=== PATIENT | male | born 1945 | race Caucasian/White ===

== ENCOUNTER 2024-02-11 19:40 | Inpatient (IN) | payer OTHER ==
[~2024-02-11] VITALS: Ht 182.9 cm; Wt 104.5 kg
[2024-02-11] MEDS ORDERED: SODIUM CHLORIDE 0.9% 1,000 ML IV ONE (19:50)
[2024-02-11 20:00] VITALS: BP 190/94
[2024-02-11 20:33] LABS: ACT PARTIAL THROMBO TIME 27.6 SECONDS (20.0-32.1)
[2024-02-11 20:34] LABS: HEMATOCRIT 46.2 % (42.0-52.0); MEAN CELL VOLUME 89.7 fl (80.0-94.0); MEAN CORPUSCULAR HGB 29.1 pg (27.0-31.0); MEAN CORPUSCULAR HGB CONC 32.5 g/dl (33.0-37.0); MEAN PLATELET VOLUME 10.6 fl (9.6-12.3); PLATELET COUNT AUTOMATED 292 10*3/uL (130-400); RED BLOOD COUNT 5.15 10*6/uL (4.50-5.90); RED CELL DISTRI WIDTH 17.7 % (0-14.5); WHITE BLOOD COUNT 32.1 10*3/uL (4.8-10.8)
[2024-02-11 20:38] LABS: ALKALINE PHOSPHATASE 169 U/L (46-116); BUN 24 mg/dl (9-23); CHLORIDE 112 mmol/L (98-107); CPK 963 U/L (34-171); POTASSIUM 3.9 mmol/L (3.4-5.1); SGPT/ALT 33 U/L (5-49); TOTAL PROTEIN 7.6 gm/dL (6.0-8.0)
[2024-02-11 20:39] LABS: ETHYL ALCOHOL < 3.0 mg/dl (<3)
[2024-02-11 20:41] LABS: MANUAL DIFF REFLEX YES
[2024-02-11 20:57] LABS: BASOPHILS 1 % (0-1); MICROCYTOSIS SLIGHT; PLATELET SUFFICIENCY NORMAL (NORMAL); TOTAL CELLS COUNTED 100 #CELLS
[2024-02-11 20:58] LABS: BURR CELLS FEW
[2024-02-11] MEDS ORDERED: OMEGA 3 1,0001 EACH PO (21:29)
[2024-02-11] MEDS ORDERED: MAGNESIUM OXID400 MG PO (21:29)
[2024-02-11] MEDS ORDERED: FLOMAX0.4 MG PO (21:29)
[2024-02-11] MEDS ORDERED: MELATONIN3 MG PO (21:29)
[2024-02-11] MEDS ORDERED: COLACE100 MG PO (21:30)
[2024-02-11] MEDS ORDERED: TIKOSYN250 MCG PO (21:30)
[2024-02-11] MEDS ORDERED: OZEMPIC2 MG/0.71 SQ (21:31)
[2024-02-11] MEDS ORDERED: CALCIUM500 M1 PO (21:32)
[2024-02-11] MEDS ORDERED: LANTUS100 UNIT/1 SC (21:32)
[2024-02-12 00:45] VITALS: BP 172/89
[2024-02-12] MEDS ORDERED: BISACODYL 5 MG TAB PO PRN (01:25)
[2024-02-12] MEDS ORDERED: Acetaminophen/Hydrocodone 5 MG/325 MG TABLET PO PRN (01:25)
[2024-02-12] MEDS ORDERED: Ondansetron Hydrochloride 4 MG/2 ML VIAL IV PRN (01:25)
[2024-02-12] MEDS ORDERED: ACETAMINOPHEN 650 MG SUPP R PRN (01:25)
[2024-02-12] MEDS ORDERED: ACETAMINOPHEN 325 MG TAB PO PRN (01:25)
[2024-02-12] MEDS ORDERED: Piperacillin Sodium/Tazobact 50 ML IV SCH (01:30)
[2024-02-12] MEDS ORDERED: DEXTROSE 10 % IN WATER 250 ML IV PRN (01:40)
[2024-02-12] MEDS ORDERED: SODIUM CHLORIDE 0.9% 1,000 ML IV ONE ×2 (01:50→13:35)
[2024-02-12] MEDS ORDERED: Vancomycin Hydrochloride 2,000 MG in SODIUM CHLORIDE 0.9% 500 ML IV ONE (02:10)
[2024-02-12 04:28] VITALS: BP 166/97
[2024-02-12 06:07] LABS: FREE T4 1.11 ng/dl (0.89-1.76); POTASSIUM 3.6 mmol/L (3.4-5.1); TOTAL PROTEIN 6.6 gm/dL (6.0-8.0)
[2024-02-12 06:13] LABS: HEMATOCRIT 42.6 % (42.0-52.0); MEAN CELL VOLUME 91.2 fl (80.0-94.0); MEAN CORPUSCULAR HGB 28.9 pg (27.0-31.0); MEAN CORPUSCULAR HGB CONC 31.7 g/dl (33.0-37.0); PLATELET COUNT AUTOMATED 267 10*3/uL (130-400); RED BLOOD COUNT 4.67 10*6/uL (4.50-5.90); RED CELL DISTRI WIDTH 17.6 % (0-14.5); WHITE BLOOD COUNT 28.1 10*3/uL (4.8-10.8)
[2024-02-12 06:19] LABS: MANUAL DIFF REFLEX YES
[2024-02-12] MEDS ORDERED: INSULIN LISPRO 1 UNIT/0.01 ML SQ SCH (07:30)
[2024-02-12 07:32] LABS: BASOPHILS 1 % (0-1); PLATELET SUFFICIENCY NORMAL (NORMAL); TOTAL CELLS COUNTED 100 #CELLS
[2024-02-12 07:56] VITALS: BP 140/82
[2024-02-12] MEDS ORDERED: hydrOXYzine pamoate 25 MG CAP PO ONE (08:00)
[2024-02-12] MEDS ORDERED: CALCIUM (OSCAL) 500MG PO SCH (10:00)
[2024-02-12] MEDS ORDERED: Tamsulosin Hydrochloride 0.4 MG CAP PO SCH (10:00)
[2024-02-12] MEDS ORDERED: MAGNESIUM OXIDE 400 MG TAB PO SCH (10:00)
[2024-02-12] MEDS ORDERED: APIXABAN 5 MG TAB PO SCH (10:00)
[2024-02-12] MEDS ORDERED: LORazepam 1 MG TAB PO PRN (11:55)
[2024-02-12 12:31] VITALS: BP 128/99
[2024-02-12 12:34] LABS: BILIRUBIN Negative (Negative); BLOOD 3+ (Negative); CLARITY Clear (Clear); COLOR Yellow (Yellow); GLUCOSE Negative (Negative); KETONE 1+ (Negative); LEUKO ESTERASE Negative (Negative); NITRITE Negative (Negative); PH 5.5 (4.5-8.0); SPECIFIC GRAVITY 1.015 (1.001-1.030); UROBILINOGEN 0.2 E.U./dl (0.0-1.0)
[2024-02-12 12:39] LABS: URINE AMPHETAMINES Negative (1000ng/ml); URINE BARBITURATES Negative (200ng/ml); URINE BENZODIAZEPINES Negative (200ng/ml); URINE CANNABINOIDS (THC) Negative (50ng/ml); URINE COCAINE Negative (300ng/ml); URINE METHADONE Negative (300ng/ml); URINE OPIATES Negative (300ng/ml); URINE PHENCYCLIDINE Negative (25ng/ml)
[2024-02-12 12:48] LABS: BACTERIA 1+; RBC 41-50 rbc/hpf (0-2)
[2024-02-12 17:00] VITALS: BP 174/82
[2024-02-12 20:00] VITALS: BP 160/63
[2024-02-12] MEDS ORDERED: Melatonin 3 MG TABLET PO SCH (22:00)
[2024-02-12] MEDS ORDERED: Insulin Glargine, Recombinan 1 UNIT/0.01 ML SC SCH (22:00)
[2024-02-13] VITALS: BP 184/66
[2024-02-13] MEDS ORDERED: VANCOMYCIN/WATER FOR INJ (PEG) 400 ML IV SCH (04:00)
[2024-02-13 05:08] LABS: POTASSIUM 3.4 mmol/L (3.4-5.1); TOTAL PROTEIN 6.8 gm/dL (6.0-8.0)
[2024-02-13 05:55] LABS: MEAN CELL VOLUME 90.7 fl (80.0-94.0); MEAN CORPUSCULAR HGB 28.9 pg (27.0-31.0); MEAN CORPUSCULAR HGB CONC 31.9 g/dl (33.0-37.0); MEAN PLATELET VOLUME 10.6 fl (9.6-12.3); PLATELET COUNT AUTOMATED 250 10*3/uL (130-400); RED BLOOD COUNT 4.74 10*6/uL (4.50-5.90); RED CELL DISTRI WIDTH 17.4 % (0-14.5); WHITE BLOOD COUNT 25.8 10*3/uL (4.8-10.8)
[2024-02-13 06:17] LABS: MANUAL DIFF REFLEX YES
[2024-02-13] MEDS ORDERED: hydrALAZINE hydrochloride 20 MG/ML VIAL IV ONE (07:45)
[2024-02-13 07:51] LABS: BASOPHILS 1 % (0-1); PLATELET SUFFICIENCY NORMAL (NORMAL); TOTAL CELLS COUNTED 100 #CELLS
[2024-02-13 08:00] VITALS: BP 174/95
[2024-02-13] MEDS ORDERED: amLODIPine besylate 5 MG TAB PO SCH (10:00)
[2024-02-13 12:00] VITALS: BP 169/92
[2024-02-13] MEDS ORDERED: SODIUM CHLORIDE 0.9% 1,000 ML IV ONE (12:35)
[2024-02-13] MEDS ORDERED: HEEL PROTECTOR DEVICE ONE (13:16)
[2024-02-13] MEDS ORDERED: CHAIR CUSHION DEVICE ONE (13:16)
[2024-02-13] MEDS ORDERED: FOAM BANDAGE 1 EACH BANDAGE T ONE (13:16)
[2024-02-13 16:00] VITALS: BP 184/80
[2024-02-13 20:00] VITALS: BP 178/88
[2024-02-13] MEDS ORDERED: ALLOPURINOL300 MG PO (21:34)
[2024-02-13] MEDS ORDERED: LIPITOR40 MG PO (21:34)
[2024-02-13] MEDS ORDERED: ELIQUIS5 M1 PO (21:35)
[2024-02-13] MEDS ORDERED: ARTIFICIAL TEAR1514 INTRAOC (21:39)
[2024-02-13] MEDS ORDERED: JARDIANCE10 MG PO (21:41)
[2024-02-13] MEDS ORDERED: OMEPRAZOLE MAGN20 MG PO (21:42)
[2024-02-13] MEDS ORDERED: LYRICA200 M1 PO (21:42)
[2024-02-13] MEDS ORDERED: NORVASC5 MG PO (23:58)
[2024-02-14] VITALS: BP 180/68; BP 188/69
[2024-02-14] MEDS ORDERED: VITAMIN D325 MC1 PO
[2024-02-14] MEDS ORDERED: CLONIDINE0.3 MG PO (00:01)
[2024-02-14] MEDS ORDERED: PEPCID40 MG PO (00:03)
[2024-02-14] MEDS ORDERED: LOSARTAN POTASS50 M1 PO (00:09)
[2024-02-14 05:48] LABS: POTASSIUM 2.9 mmol/L (3.4-5.1)
[2024-02-14 05:57] LABS: HEMATOCRIT 41.8 % (42.0-52.0); MEAN CELL VOLUME 88.4 fl (80.0-94.0); MEAN CORPUSCULAR HGB 28.8 pg (27.0-31.0); MEAN CORPUSCULAR HGB CONC 32.5 g/dl (33.0-37.0); MEAN PLATELET VOLUME 10.7 fl (9.6-12.3); PLATELET COUNT AUTOMATED 266 10*3/uL (130-400); RED BLOOD COUNT 4.73 10*6/uL (4.50-5.90); RED CELL DISTRI WIDTH 17.4 % (0-14.5)
[2024-02-14] MEDS ORDERED: OMEPRAZOLE 20 MG CAP PO SCH (06:00)
[2024-02-14 06:01] LABS: MANUAL DIFF REFLEX YES
[2024-02-14 06:38] LABS: PLATELET SUFFICIENCY NORMAL (NORMAL); TOTAL CELLS COUNTED 100 #CELLS
[2024-02-14 06:39] LABS: BURR CELLS FEW
[2024-02-14 08:00] VITALS: BP 179/86
[2024-02-14] MEDS ORDERED: hydrALAZINE hydrochloride 20 MG/ML VIAL IV ONE (08:00)
[2024-02-14] MEDS ORDERED: POTASSIUM CHLORIDE 40 MEQ in SODIUM CHLORIDE 0.9% 1,000 ML IV ONE (09:00)
[2024-02-14] MEDS ORDERED: Losartan Potassium 50 MG TAB PO SCH (10:00)
[2024-02-14] MEDS ORDERED: PREGABALIN 50 MG CAP PO SCH (10:00)
[2024-02-14] MEDS ORDERED: CARVEDILOL 6.25 MG TAB PO SCH (10:00)
[2024-02-14] MEDS ORDERED: amLODIPine besylate 5 MG TAB PO SCH (10:00)
[2024-02-14] MEDS ORDERED: ALLOPURINOL 300 MG TAB PO SCH (10:00)
[2024-02-14 12:00] VITALS: BP 161/95
[2024-02-14 16:00] VITALS: BP 191/89
[2024-02-14] MEDS ORDERED: SODIUM CHLORIDE 0.9% 1,000 ML IV ONE (19:13)
[2024-02-14 20:00] VITALS: BP 178/66
[2024-02-14] MEDS ORDERED: ATORVASTATIN CALCIUM 40 MG TABLET PO SCH (22:00)
[2024-02-14] MEDS ORDERED: Tamsulosin Hydrochloride 0.4 MG CAP PO SCH (22:00)
[2024-02-15] VITALS: BP 178/66
[2024-02-15 08:00] VITALS: BP 180/82
[2024-02-15] MEDS ORDERED: LORazepam 2 MG/ML VIAL IV ONE ×2 (08:05→11:25)
[2024-02-15 09:36] LABS: HEMATOCRIT 44.8 % (42.0-52.0); MEAN CELL VOLUME 90.1 fl (80.0-94.0); MEAN CORPUSCULAR HGB 29.4 pg (27.0-31.0); MEAN CORPUSCULAR HGB CONC 32.6 g/dl (33.0-37.0); PLATELET COUNT AUTOMATED 295 10*3/uL (130-400); RED BLOOD COUNT 4.97 10*6/uL (4.50-5.90); RED CELL DISTRI WIDTH 17.6 % (0-14.5); WHITE BLOOD COUNT 29.2 10*3/uL (4.8-10.8)
[2024-02-15 09:42] LABS: MANUAL DIFF REFLEX YES
[2024-02-15 09:56] LABS: POTASSIUM 3.1 mmol/L (3.4-5.1)
[2024-02-15 10:21] LABS: TOTAL CELLS COUNTED 100 #CELLS
[2024-02-15 10:22] LABS: PLATELET SUFFICIENCY NORMAL (NORMAL)
[2024-02-15 12:00] VITALS: BP 181/103
[2024-02-15] MEDS ORDERED: BARIUM SULFATE 2% 450 ML BOT PO SCH (12:00)
[2024-02-15 16:00] VITALS: BP 170/72
[2024-02-15] MEDS ORDERED: POTASSIUM CHLORIDE 20 MEQ TAB PO ONE (16:00)
[2024-02-15] MEDS ORDERED: FUROSEMIDE 40 MG/4 ML VIAL IV ONE (17:00)
[2024-02-15 20:00] VITALS: BP 174/100
[2024-02-16] VITALS: BP 190/79
[2024-02-16] MEDS ORDERED: NYSTATIN CREAM 15 GM TUBE T SCH (00:05)
[2024-02-16 03:32] LABS: MEAN CORPUSCULAR HGB 28.8 pg (27.0-31.0); MEAN CORPUSCULAR HGB CONC 32.4 g/dl (33.0-37.0); MEAN PLATELET VOLUME 9.4 fl (9.6-12.3); PLATELET COUNT AUTOMATED 263 10*3/uL (130-400); RED BLOOD COUNT 4.72 10*6/uL (4.50-5.90); RED CELL DISTRI WIDTH 17.6 % (0-14.5); WHITE BLOOD COUNT 25.7 10*3/uL (4.8-10.8)
[2024-02-16 03:33] LABS: MANUAL DIFF REFLEX YES
[2024-02-16 03:55] LABS: POTASSIUM 2.9 mmol/L (3.4-5.1); TOTAL PROTEIN 6.5 gm/dL (6.0-8.0)
[2024-02-16 03:58] LABS: BASOPHILS 1 % (0-1); PLATELET SUFFICIENCY NORMAL (NORMAL); TOTAL CELLS COUNTED 100 #CELLS
[2024-02-16 08:00] VITALS: BP 156/82; BP 158/72
[2024-02-16] MEDS ORDERED: cloNIDine Hydrochloride 0.1 MG TAB PO ONE (08:20)
[2024-02-16] MEDS ORDERED: POTASSIUM CHLORIDE 20 MEQ TAB PO ONE (08:20)
[2024-02-16] MEDS ORDERED: AZITHROMYCIN 250 ML IV SCH (10:00)
[2024-02-16 12:00] VITALS: BP 149/81
[2024-02-16] MEDS ORDERED: cloNIDine 0.1 MG PATCH T SCH (12:00)
[2024-02-16 16:00] VITALS: BP 190/80
[2024-02-16 16:30] VITALS: BP 152/78
[2024-02-16 20:00] VITALS: BP 154/67
[2024-02-16] MEDS ORDERED: Polyethylene Glycol 15 ML BOT OPH PRN (21:25)
[2024-02-17] VITALS (9 sets, daily range): BP systolic 143–168; BP diastolic 66–87
[2024-02-17 03:45] LABS: HEMATOCRIT 41.4 % (42.0-52.0); MEAN CORPUSCULAR HGB CONC 31.9 g/dl (33.0-37.0); MEAN PLATELET VOLUME 10.3 fl (9.6-12.3); PLATELET COUNT AUTOMATED 251 10*3/uL (130-400); RED BLOOD COUNT 4.55 10*6/uL (4.50-5.90); RED CELL DISTRI WIDTH 17.7 % (0-14.5)
[2024-02-17 03:54] LABS: MANUAL DIFF REFLEX YES
[2024-02-17 04:07] LABS: BASOPHILS 1 % (0-1); PLATELET SUFFICIENCY NORMAL (NORMAL); TOTAL CELLS COUNTED 100 #CELLS
[2024-02-17 04:08] LABS: POTASSIUM 3.2 mmol/L (3.4-5.1); TOTAL PROTEIN 6.5 gm/dL (6.0-8.0)
[2024-02-17] MEDS ORDERED: BUPIVACAINE 0.5% 0 ML IV ONE (07:23)
[2024-02-17] MEDS ORDERED: Vancomycin Hydrochloride 1,000 MG VIAL T ONE (07:40)
[2024-02-17] MEDS ORDERED: Lactated Ringer's Solution 1,000 ML IV ONE ×2 (07:40→07:58)
[2024-02-17] MEDS ORDERED: VANCOMYCIN/WATER FOR INJ (PEG) 300 ML IV SCH (12:00)
[2024-02-17] MEDS ORDERED: POTASSIUM CHLORIDE 20 MEQ TAB PO ONE ×2 (12:15→16:25)
[2024-02-18] VITALS: BP 179/77
[2024-02-18 06:24] LABS: HEMATOCRIT 36.4 % (42.0-52.0); MEAN CELL VOLUME 89.4 fl (80.0-94.0); MEAN CORPUSCULAR HGB 28.5 pg (27.0-31.0); MEAN CORPUSCULAR HGB CONC 31.9 g/dl (33.0-37.0); MEAN PLATELET VOLUME 10.6 fl (9.6-12.3); PLATELET COUNT AUTOMATED 225 10*3/uL (130-400); RED BLOOD COUNT 4.07 10*6/uL (4.50-5.90); RED CELL DISTRI WIDTH 17.9 % (0-14.5)
[2024-02-18 06:26] LABS: MANUAL DIFF REFLEX YES
[2024-02-18 06:50] LABS: POTASSIUM 3.6 mmol/L (3.4-5.1)
[2024-02-18 07:20] LABS: BASOPHILS 3 % (0-1); PLATELET SUFFICIENCY NORMAL (NORMAL); TOTAL CELLS COUNTED 100 #CELLS
[2024-02-18 07:21] LABS: BURR CELLS MODERATE
[2024-02-18 08:00] VITALS: BP 168/78
[2024-02-18 10:07] LABS: ACID FAST SPEC PROCESSING Tissue Grinding (.)
[2024-02-18 12:00] VITALS: BP 157/71
[2024-02-18] MEDS ORDERED: Piperacillin Sodium/Tazobact 2.25 GM in SODIUM CHLORIDE 0.9% 50 ML IV SCH (14:00)
[2024-02-18 15:07] LABS: ACID FAST SPEC PROCESSING Tissue Grinding (.)
[2024-02-18 15:07] LABS: ACID FAST SPEC PROCESSING Tissue Grinding (.)
[2024-02-18 16:00] VITALS: BP 154/97
[2024-02-18 20:00] VITALS: BP 170/73
[2024-02-19] VITALS: BP 163/64
[2024-02-19 06:15] LABS: MEAN CELL VOLUME 91.8 fl (80.0-94.0); MEAN CORPUSCULAR HGB 28.5 pg (27.0-31.0); MEAN CORPUSCULAR HGB CONC 31.1 g/dl (33.0-37.0); MEAN PLATELET VOLUME 11.2 fl (9.6-12.3); PLATELET COUNT AUTOMATED 226 10*3/uL (130-400); RED BLOOD COUNT 4.14 10*6/uL (4.50-5.90); RED CELL DISTRI WIDTH 17.7 % (0-14.5); WHITE BLOOD COUNT 13.4 10*3/uL (4.8-10.8)
[2024-02-19 06:26] LABS: MANUAL DIFF REFLEX YES
[2024-02-19 06:40] LABS: POTASSIUM 3.5 mmol/L (3.4-5.1); TOTAL PROTEIN 5.9 gm/dL (6.0-8.0)
[2024-02-19 07:20] LABS: BASOPHILS 1 % (0-1); TOTAL CELLS COUNTED 100 #CELLS
[2024-02-19 07:21] LABS: BURR CELLS MODERATE; PLATELET SUFFICIENCY NORMAL (NORMAL)
[2024-02-19 08:00] VITALS: BP 194/84
[2024-02-19 12:00] VITALS: BP 182/89
[2024-02-19] MEDS ORDERED: Piperacillin Sodium/Tazobact 2.25 GM in SODIUM CHLORIDE 0.9% 50 ML IV SCH (12:00)
[2024-02-19 16:00] VITALS: BP 159/67
[2024-02-19 20:00] VITALS: BP 158/78
[2024-02-20] VITALS: BP 152/72
[2024-02-20 08:00] VITALS: BP 162/77
[2024-02-20] MEDS ORDERED: PROPOFOL 200 MG/20 ML VIAL IV ONE (08:34)
[2024-02-20] MEDS ORDERED: Lidocaine Hydrochloride 2% 10 ML AMP IM ONE (08:34)
[2024-02-20] MEDS ORDERED: fentaNYL CITRATE 100 MCG/2 ML VIAL IM ONE (08:34)
[2024-02-20] MEDS ORDERED: Cefepime Hydrochloride 2 GM in SODIUM CHLORIDE 0.9% 50 ML IV SCH (10:00)
[2024-02-20 12:00] VITALS: BP 171/69
[2024-02-20 16:00] VITALS: BP 170/70
[2024-02-20 20:00] VITALS: BP 153/78
[2024-02-20] MEDS ORDERED: Vancomycin Hydrochloride 1,000 MG in SODIUM CHLORIDE 0.9% 250 ML IV SCH (22:00)
[2024-02-21 00:09] VITALS: BP 155/56
[2024-02-21 03:57] LABS: MEAN CELL VOLUME 89.2 fl (80.0-94.0); MEAN CORPUSCULAR HGB 29.5 pg (27.0-31.0); MEAN PLATELET VOLUME 10.8 fl (9.6-12.3); PLATELET COUNT AUTOMATED 215 10*3/uL (130-400); RED CELL DISTRI WIDTH 17.8 % (0-14.5); WHITE BLOOD COUNT 11.3 10*3/uL (4.8-10.8)
[2024-02-21 04:08] LABS: MANUAL DIFF REFLEX YES
[2024-02-21 04:30] LABS: POTASSIUM 3.6 mmol/L (3.4-5.1)
[2024-02-21 04:55] LABS: BASOPHILS 1 % (0-1); PLATELET SUFFICIENCY NORMAL (NORMAL); POLYCHROMASIA SLIGHT; TOTAL CELLS COUNTED 100 #CELLS
[2024-02-21 08:00] VITALS: BP 188/77
[2024-02-21] MEDS ORDERED: LEVOFLOXACIN 750 MG TAB PO SCH (08:06)
[2024-02-21] MEDS ORDERED: LINEZOLID 600 MG TAB PO SCH (10:00)
[2024-02-21] MEDS ORDERED: AZITHROMYCIN 250 ML IV SCH (10:00)
[2024-02-21] MEDS ORDERED: LEVOFLOXACIN750 M2 PO (11:13)
[2024-02-21] MEDS ORDERED: LINEZOLID600 MG PO (11:13)
[2024-02-21] MEDS ORDERED: CLONIDINE1 EACH T (11:13)
[2024-02-21] MEDS ORDERED: CARVEDILOL6.25 MG PO (11:13)
[2024-02-21] MEDS ORDERED: LYRICA200 M1 PO (11:13)
[2024-02-21 12:00] VITALS: BP 144/81
== END 2024-02-21 15:20 | DRG 853 ==
LOC: ED 19:40 → 4E 02-12 01:10 → EDHOLD 02-12 01:10 → 4E 02-12 15:59
PROVIDERS: Family Medicine; Internal Medicine; Podiatrist; Student in an Organized Health Care Education/Training Program; ADMIT Internal Medicine; ATTEND Internal Medicine
PROC: 0JBR0ZZ Excision of Left Foot Subcutaneous Tissue and Fascia, Open Approach (ICD-10-PCS; principal; 2024-02-17)
PROC: 0JBQ0ZZ Excision of Right Foot Subcutaneous Tissue and Fascia, Open Approach (ICD-10-PCS; 2024-02-17)
PROC: 0HRMXK3 Replacement of Right Foot Skin with Nonautologous Tissue Substitute, Full Thickness, External Approach (ICD-10-PCS; 2024-02-17)
PROC: 0YBM0ZX Excision of Right Foot, Open Approach, Diagnostic (ICD-10-PCS; 2024-02-17)
DX: A41.9 Sepsis, unspecified organism (principal); G93.41 Metabolic encephalopathy; N17.0 Acute kidney failure with tubular necrosis; J18.9 Pneumonia, unspecified organism; M62.82 Rhabdomyolysis; L03.115 Cellulitis of right lower limb; L03.116 Cellulitis of left lower limb; E87.0 Hyperosmolality and hypernatremia; L97.929 Non-pressure chronic ulcer of unspecified part of left lower leg with unspecified severity; L97.919 Non-pressure chronic ulcer of unspecified part of right lower leg with unspecified severity; J90 Pleural effusion, not elsewhere classified; E44.1 Mild protein-calorie malnutrition; I48.91 Unspecified atrial fibrillation; E87.8 Other disorders of electrolyte and fluid balance, not elsewhere classified; E80.6 Other disorders of bilirubin metabolism; M50.321 Other cervical disc degeneration at C4-C5 level; E11.65 Type 2 diabetes mellitus with hyperglycemia; I10 Essential (primary) hypertension; R74.01 Elevation of levels of liver transaminase levels; R31.9 Hematuria, unspecified; D64.9 Anemia, unspecified; E11.622 Type 2 diabetes mellitus with other skin ulcer; E11.51 Type 2 diabetes mellitus with diabetic peripheral angiopathy without gangrene; I87.8 Other specified disorders of veins; S20.212A Contusion of left front wall of thorax, initial encounter; Z79.899 Other long term (current) drug therapy; Z79.01 Long term (current) use of anticoagulants; Z68.31 Body mass index [BMI] 31.0-31.9, adult; Z79.2 Long term (current) use of antibiotics; X58.XXXA Exposure to other specified factors, initial encounter; Y93.89 Activity, other specified; Y92.89 Other specified places as the place of occurrence of the external cause; Y99.8 Other external cause status

== ENCOUNTER 2024-02-29 11:29 | Emergency (ER) | payer OTHER ==
[~2024-02-29] VITALS: Wt 97.1 kg
[~2024-02-29 11:29] MED LIST: ALLOPURINOL300 MG PO; ARTIFICIAL TEAR1514 INTRAOC; CALCIUM500 M1 PO; CARVEDILOL6.25 MG PO; CLONIDINE0.3 MG PO; CLONIDINE1 EACH T; COLACE100 MG PO; ELIQUIS5 M1 PO; FLOMAX0.4 MG PO; JARDIANCE10 MG PO; LANTUS100 UNIT/1 SC; LEVOFLOXACIN750 M2 PO; LINEZOLID600 MG PO; LIPITOR40 MG PO; LOSARTAN POTASS50 M1 PO; LYRICA200 M1 PO; MAGNESIUM OXID400 MG PO; MELATONIN3 MG PO; NORVASC5 MG PO; OMEGA 3 1,0001 EACH PO; OMEPRAZOLE MAGN20 MG PO; OZEMPIC2 MG/0.71 SQ; PEPCID40 MG PO; TIKOSYN250 MCG PO; VITAMIN D325 MC1 PO
[2024-02-29] MEDS ORDERED: Bactroban Oint22 GM T (13:15)
[2024-02-29] MEDS ORDERED: MUPIROCIN 15 GM TUBE T ONE (13:15)
== END 2024-02-29 15:54 | disposition home or self-care (01) ==
LOC: ED 11:29
DX: S90.934A Unspecified superficial injury of right lesser toe(s), initial encounter (principal); S80.922A Unspecified superficial injury of left lower leg, initial encounter; S80.921A Unspecified superficial injury of right lower leg, initial encounter; E11.9 Type 2 diabetes mellitus without complications; I48.91 Unspecified atrial fibrillation; Z79.2 Long term (current) use of antibiotics; Z79.899 Other long term (current) drug therapy; Z79.4 Long term (current) use of insulin; X58.XXXA Exposure to other specified factors, initial encounter; Y93.89 Activity, other specified; Y92.89 Other specified places as the place of occurrence of the external cause; Y99.8 Other external cause status

== ENCOUNTER 2024-03-01 15:46 | Emergency (ER) | payer OTHER ==
[~2024-03-01] VITALS: Wt 81.6 kg
[~2024-03-01 15:46] MED LIST changes: +Bactroban Oint22 GM T
== END 2024-03-01 16:35 | disposition home or self-care (01) ==
LOC: ED 15:46
DX: Z48.00 Encounter for change or removal of nonsurgical wound dressing (principal); E11.9 Type 2 diabetes mellitus without complications; I48.91 Unspecified atrial fibrillation; N17.9 Acute kidney failure, unspecified

== ENCOUNTER 2024-03-03 04:36 | Inpatient (IN) | payer OTHER ==
[~2024-03-03] VITALS: Ht 187.9 cm; Wt 96.3 kg
[2024-03-03 04:50] VITALS: BP 151/59
[2024-03-03] MEDS ORDERED: BISACODYL10 MG R (04:55)
[2024-03-03] MEDS ORDERED: CALCIUM 1,0001 EAC3 PO (04:56)
[2024-03-03] MEDS ORDERED: FLEET ENEMA 13133 ML R (05:01)
[2024-03-03] MEDS ORDERED: CLARITIN10 MG PO (05:02)
[2024-03-03] MEDS ORDERED: MILK OF MA2400 MG/11 PO (05:04)
[2024-03-03] MEDS ORDERED: MULTIVITAMINS1 EAC6 PO (05:05)
[2024-03-03 05:51] LABS: POTASSIUM 4.3 mmol/L (3.4-5.1)
[2024-03-03 06:02] LABS: BASO # 0.1 10*3/uL (0.0-0.1); BASO % 0.7 % (0.0-1.0); EOS # 0.2 10*3/uL (0.0-0.4); EOS % 1.6 % (1.0-4.0); HEMATOCRIT 30.7 % (42.0-52.0); LYMPH # 0.5 10*3/uL (1.3-4.4); LYMPH % 3.7 % (27.0-41.0); MEAN CELL VOLUME 90.8 fl (80.0-94.0); MEAN CORPUSCULAR HGB 30.2 pg (27.0-31.0); MEAN CORPUSCULAR HGB CONC 33.2 g/dl (33.0-37.0); MEAN PLATELET VOLUME 10.6 fl (9.6-12.3); MONO # 0.5 10*3/uL (0.1-1.0); MONO % 3.6 % (3.0-9.0); NEUT # 12.4 10*3/uL (2.3-7.9); NEUT % 89.9 % (47.0-73.0); PLATELET COUNT AUTOMATED 171 10*3/uL (130-400); RED BLOOD COUNT 3.38 10*6/uL (4.50-5.90); RED CELL DISTRI WIDTH 18.9 % (0-14.5); WHITE BLOOD COUNT 13.8 10*3/uL (4.8-10.8)
[2024-03-03 06:39] LABS: BILIRUBIN Negative (Negative); BLOOD 2+ (Negative); CLARITY Clear (Clear); COLOR Yellow (Yellow); GLUCOSE 2+ (Negative); KETONE Negative (Negative); LEUKO ESTERASE Negative (Negative); NITRITE Negative (Negative); PH 6.5 (4.5-8.0); SPECIFIC GRAVITY 1.015 (1.001-1.030); UROBILINOGEN 0.2 E.U./dl (0.0-1.0)
[2024-03-03] MEDS ORDERED: SODIUM CHLORIDE 0.9% 1,000 ML IV ONE (06:40)
[2024-03-03 06:48] LABS: EPITHELIAL CELLS 0-2; RBC 21-30 rbc/hpf (0-2); WBC 0-2 wbc/hpf (0-5)
[2024-03-03 07:15] VITALS: BP 142/48
[2024-03-03 09:00] VITALS: BP 161/77
[2024-03-03] MEDS ORDERED: Ondansetron Hydrochloride 4 MG/2 ML VIAL IV PRN (09:00)
[2024-03-03] MEDS ORDERED: BISACODYL 5 MG TAB PO PRN (09:00)
[2024-03-03] MEDS ORDERED: TEMAZEPAM 15 MG CAP PO PRN (09:00)
[2024-03-03] MEDS ORDERED: Magnesium Hydroxide 30 ML UDC PO PRN (09:00)
[2024-03-03] MEDS ORDERED: BISACODYL 10 MG SUPP R PRN (09:00)
[2024-03-03] MEDS ORDERED: ACETAMINOPHEN 325 MG TAB PO PRN (09:00)
[2024-03-03 12:00] VITALS: BP 161/66
[2024-03-03] MEDS ORDERED: LACTULOSE 20 GM/30 ML UDC PO SCH ×2 (12:35→15:04)
[2024-03-03] MEDS ORDERED: DEXTROSE 10 % IN WATER 250 ML IV PRN (13:10)
[2024-03-03] MEDS ORDERED: Glycerin/Hypromellose/Polyet 300 DRP BOT OPH PRN (13:10)
[2024-03-03] MEDS ORDERED: cloNIDine 0.1 MG PATCH T SCH (13:10)
[2024-03-03 16:00] VITALS: BP 167/91
[2024-03-03] MEDS ORDERED: INSULIN LISPRO 1 UNIT/0.01 ML SQ SCH (16:30)
[2024-03-03] MEDS ORDERED: MAGNESIUM OXIDE 400 MG TAB PO SCH (18:00)
[2024-03-03] MEDS ORDERED: APIXABAN 5 MG TAB PO SCH (18:00)
[2024-03-03] MEDS ORDERED: MUPIROCIN 15 GM TUBE T SCH (18:00)
[2024-03-03 20:00] VITALS: BP 142/64
[2024-03-03] MEDS ORDERED: Tamsulosin Hydrochloride 0.4 MG CAP PO SCH (22:00)
[2024-03-03] MEDS ORDERED: LINEZOLID 600 MG TAB PO SCH (22:00)
[2024-03-03] MEDS ORDERED: NYSTATIN 15 GM BOT T SCH (22:00)
[2024-03-03] MEDS ORDERED: PREGABALIN 50 MG CAP PO SCH (22:00)
[2024-03-03] MEDS ORDERED: ATORVASTATIN CALCIUM 40 MG TABLET PO SCH (22:00)
[2024-03-03] MEDS ORDERED: Melatonin 3 MG TABLET PO SCH (22:00)
[2024-03-03] MEDS ORDERED: CARVEDILOL 6.25 MG TAB PO SCH (22:00)
[2024-03-04] VITALS: BP 126/54; BP 129/54
[2024-03-04 06:30] LABS: BASO # 0.1 10*3/uL (0.0-0.1); BASO % 0.8 % (0.0-1.0); EOS # 0.4 10*3/uL (0.0-0.4); EOS % 3.6 % (1.0-4.0); HEMATOCRIT 27.6 % (42.0-52.0); LYMPH # 0.8 10*3/uL (1.3-4.4); LYMPH % 7.2 % (27.0-41.0); MEAN CELL VOLUME 92.3 fl (80.0-94.0); MEAN CORPUSCULAR HGB 29.1 pg (27.0-31.0); MEAN CORPUSCULAR HGB CONC 31.5 g/dl (33.0-37.0); MEAN PLATELET VOLUME 10.6 fl (9.6-12.3); MONO # 0.5 10*3/uL (0.1-1.0); MONO % 4.8 % (3.0-9.0); NEUT # 8.7 10*3/uL (2.3-7.9); NEUT % 83.1 % (47.0-73.0); PLATELET COUNT AUTOMATED 136 10*3/uL (130-400); RED BLOOD COUNT 2.99 10*6/uL (4.50-5.90); RED CELL DISTRI WIDTH 18.5 % (0-14.5); WHITE BLOOD COUNT 10.4 10*3/uL (4.8-10.8)
[2024-03-04 06:45] LABS: ACT PARTIAL THROMBO TIME 34.5 SECONDS (20.0-32.1)
[2024-03-04 06:56] LABS: POTASSIUM 3.8 mmol/L (3.4-5.1)
[2024-03-04 08:00] VITALS: BP 129/76
[2024-03-04] MEDS ORDERED: LEVOFLOXACIN 750 MG TAB PO SCH ×2 (08:00→08:13)
[2024-03-04] MEDS ORDERED: Losartan Potassium 50 MG TAB PO SCH (10:00)
[2024-03-04] MEDS ORDERED: EMPAGLIFLOZIN 10 MG TABLET PO SCH (10:00)
[2024-03-04] MEDS ORDERED: Vitamin D 1,000 IU TAB (25 MCG) PO SCH (10:00)
[2024-03-04] MEDS ORDERED: LORATADINE 10 MG TAB PO SCH (10:00)
[2024-03-04] MEDS ORDERED: OMEPRAZOLE 20 MG CAP PO SCH (10:00)
[2024-03-04] MEDS ORDERED: CALCIUM (OSCAL) 500MG PO SCH (10:00)
[2024-03-04] MEDS ORDERED: ALLOPURINOL 300 MG TAB PO SCH (10:00)
[2024-03-04 12:00] VITALS: BP 132/67
[2024-03-04 16:00] VITALS: BP 144/81
[2024-03-04 20:10] VITALS: BP 152/84
[2024-03-05 00:08] VITALS: BP 114/54
[2024-03-05 06:15] LABS: POTASSIUM 4.2 mmol/L (3.4-5.1)
[2024-03-05 07:15] LABS: BASO # 0.1 10*3/uL (0.0-0.1); BASO % 0.8 % (0.0-1.0); EOS # 0.5 10*3/uL (0.0-0.4); EOS % 5.2 % (1.0-4.0); HEMATOCRIT 26.7 % (42.0-52.0); LYMPH # 0.7 10*3/uL (1.3-4.4); LYMPH % 8.1 % (27.0-41.0); MEAN CORPUSCULAR HGB 29.3 pg (27.0-31.0); MEAN CORPUSCULAR HGB CONC 31.5 g/dl (33.0-37.0); MEAN PLATELET VOLUME 11.2 fl (9.6-12.3); MONO # 0.4 10*3/uL (0.1-1.0); MONO % 4.3 % (3.0-9.0); NEUT # 7.3 10*3/uL (2.3-7.9); NEUT % 81.4 % (47.0-73.0); PLATELET COUNT AUTOMATED 114 10*3/uL (130-400); RED BLOOD COUNT 2.87 10*6/uL (4.50-5.90); RED CELL DISTRI WIDTH 18.2 % (0-14.5); WHITE BLOOD COUNT 8.9 10*3/uL (4.8-10.8)
[2024-03-05 08:00] VITALS: BP 147/68
[2024-03-05] MEDS ORDERED: SODIUM CHLORIDE 0.9% 1,000 ML IV ONE ×2 (08:25→13:50)
[2024-03-05 11:54] VITALS: BP 143/68
== END 2024-03-05 14:15 | disposition left against medical advice (07) | DRG 682 ==
LOC: ED 04:36 → EDHOLD 06:36 → 4E 06:36
PROVIDERS: Emergency Medicine; Student in an Organized Health Care Education/Training Program; ADMIT Family Medicine; ATTEND Family Medicine
DX: N17.0 Acute kidney failure with tubular necrosis (principal); L89.524 Pressure ulcer of left ankle, stage 4; R65.10 Systemic inflammatory response syndrome (SIRS) of non-infectious origin without acute organ dysfunction; E44.1 Mild protein-calorie malnutrition; I48.20 Chronic atrial fibrillation, unspecified; E78.5 Hyperlipidemia, unspecified; I10 Essential (primary) hypertension; R31.21 Asymptomatic microscopic hematuria; E86.0 Dehydration; E11.42 Type 2 diabetes mellitus with diabetic polyneuropathy; D64.9 Anemia, unspecified; E55.9 Vitamin D deficiency, unspecified; G47.00 Insomnia, unspecified; S91.102A Unspecified open wound of left great toe without damage to nail, initial encounter; S91.001A Unspecified open wound, right ankle, initial encounter; M10.9 Gout, unspecified; N43.3 Hydrocele, unspecified; E11.41 Type 2 diabetes mellitus with diabetic mononeuropathy; Z53.29 Procedure and treatment not carried out because of patient's decision for other reasons; S91.309A Unspecified open wound, unspecified foot, initial encounter; R31.0 Gross hematuria; S81.802A Unspecified open wound, left lower leg, initial encounter; X58.XXXA Exposure to other specified factors, initial encounter; Z79.4 Long term (current) use of insulin; Y93.89 Activity, other specified; Y92.89 Other specified places as the place of occurrence of the external cause; Y99.8 Other external cause status; Z68.27 Body mass index [BMI] 27.0-27.9, adult